=== PATIENT | female | born 1975 | race African-American/Black ===

== ENCOUNTER 2018-06-15 12:50 | Observation (INO) | payer MEDICARE ==
[2018-06-15] MEDS ORDERED: methylPREDNISolone NA SUCC 125 MG/2 ML VIAL IVPB ONE (13:03)
[2018-06-15] MEDS ORDERED: EPINEPHrine 1:1,000 1 MG/1 ML - 30ML VIAL (INJECTION) SQ ONE (13:03)
[2018-06-15] MEDS ORDERED: methylPREDNISolone NA SUCC 125 MG/2 ML VIAL ONE (13:04)
[2018-06-15] MEDS ORDERED: ALBUTEROL SO4 2.5/IPRATROPIUM 0.5 INH SOL 3 ML VIAL.NEB. NEB ONE (13:04)
[2018-06-15] MEDS ORDERED: SODIUM CHLORIDE 1,000 ML IV STA ×2 (13:04→17:59)
[2018-06-15] MEDS ORDERED: RACEPINEPHRINE IH SOL 2.25% 11.25 MG/0.5 ML VIAL IH ONE (13:04)
--- NOTE | 2018-06-15 13:05 | PDOC ---
History of Present Illness - General Chief Complaint: Allergic Reaction Stated Complaint: ALLEGRIC REASON Time Seen by Provider: 06/15/18 12:57 History Source: Patient Exam Limitations: Clinical Condition - History of Present Illness Initial Comments: 43 yo F presents with allergic reaction. She states she was drinking a guava drink just [employer]. She felt her lips and cheeks swell, took benadryl prior to arrival. Denies difficulty breathing or speaking, however, she is noted to have a wheezing sound on inspiration. Denies difficulty swallowing. Past History - Past Medical History Allergies/Adverse Reactions: Allergies Allergy/AdvReac Type Severity Reaction Status Date / Time No Known Allergies Allergy Verified 06/15/18 13:00 Home Medications: Ambulatory Orders NK [No Known Home Medication] 06/15/18 COPD: No - Suicide/Smoking/Psychosocial Hx Smoking History: Never smoked Have you smoked in the past 12 months: No Information on smoking cessation initiated: No Hx Alcohol Use: No Drug/Substance Use Hx: No Review of Systems - Review of Systems Able to Perform ROS?: Yes Comments:: GENERAL/CONSTITUTIONAL: No fever or chills. No weakness. HEAD, EYES, EARS, NOSE AND THROAT: No change in vision. No ear pain or discharge. No sore throat. +Facial swelling. CARDIOVASCULAR: No chest pain or shortness of breath. RESPIRATORY: No cough, wheezing, or hemoptysis. GASTROINTESTINAL: No nausea, vomiting, diarrhea or constipation. GENITOURINARY: No dysuria, frequency, or change in urination. MUSCULOSKELETAL: No joint or muscle swelling or pain. No neck or back pain. SKIN: No rash. NEUROLOGIC: No headache, vertigo, loss of consciousness, or change in strength/ sensation. ENDOCRINE: No increased thirst. No abnormal weight change. HEMATOLOGIC/LYMPHATIC: No anemia, easy bleeding, or history of blood clots. ALLERGIC/IMMUNOLOGIC: No hives or skin allergy. *Physical Exam - Vital Signs Last Vital Signs Temp Pulse Resp BP Pulse Ox 98.7 F 96 H 16 151/74 100 06/15/18 12:50 06/15/18 12:50 06/15/18 12:50 06/15/18 12:50 06/15/18 12:50 - Physical Exam Comments: GENERAL: Awake, alert, and fully oriented, in no acute distress HEAD: No signs of trauma EYES: PERRLA, EOMI, sclera anicteric, conjunctiva clear ENT: Auricles normal inspection, hearing grossly normal, nares patent, oropharynx clear without exudates. Moist mucosa. Uvula midline, but appears enlarged. NECK: Normal ROM, supple, no lymphadenopathy, JVD, or masses LUNGS: Breath sounds equal, clear to auscultation bilaterally. No wheezes, and no crackles. Good air entry B/L. Noted to have wheezing sounds upon inspiration , but not with exhalation. Able to speak. HEART: Regular rate and rhythm, normal S1 and S2, no murmurs, rubs or gallops ABDOMEN: Soft, nontender, normoactive bowel sounds. No guarding, no rebound. No masses EXTREMITIES: Normal range of motion, no edema. No clubbing or cyanosis. No cords, erythema, or tenderness NEUROLOGICAL: Cranial nerves II through XII grossly intact. Normal speech, normal gait. Motor and sensation intact SKIN: Warm, Dry, normal turgor, no rashes or lesions noted. Moderate Sedation - Procedure Monitoring Vital Signs: Procedure Monitoring Vital Signs Temperature 98.7 F 06/15/18 12:50 Pulse Rate 96 H 06/15/18 12:50 Respiratory Rate 16 06/15/18 12:50 Blood Pressure 151/74 06/15/18 12:50 O2 Sat by Pulse Oximetry (%) 100 06/15/18 12:50 Medical Decision Making - Medical Decision Making 06/15/18 13:09 Pt with inspiratory wheezing, but not expiratory. She states she can speak, but is speaking in a whisper. Based on these findings, will give epinephrine, as I am concerned for the apparent uvular swelling. Will cont to monitor. 06/15/18 13:59 Resting comfortably, airway intact. Will cont to monitor. 06/15/18 17:11 Pt still c/o throat symptoms. She is able to swallow and phonate, but her voice is hoarse. Will place on obs. *DC/Admit/Observation/Transfer Diagnosis at time of Disposition: Allergic reaction Qualifiers: Encounter type: initial encounter Qualified Code(s): T78.40XA - Allergy, unspecified, initial encounter - Discharge Dispostion Condition at time of disposition: Guarded Decision to Admit order: Yes - Referrals - Patient Instructions - Post Discharge Activity
[2018-06-15] MEDS ORDERED: EPINEPHrine/PF 1 MG/1 ML (1:1,000) AMPULE ONE (13:08)
[2018-06-15] MEDS ORDERED: RACEPINEPHRINE IH SOL 2.25% 11.25 MG/0.5 ML VIAL NEB ONE (13:09)
[2018-06-15 14:39] VITALS: TEMP 98.7; BMI 37.5
[2018-06-15 18:07] LABS: BASO % 0.2 % (0-2.0); HEMATOCRIT 34.5 % (32.4-45.2); HEMOGLOBIN 11.7 GM/dL (10.7-15.3); LYMPH % 6.2 % (8-40); MCH 28.5 pg (25.7-33.7); MEAN CELL VOLUME 83.8 fl (80-96); MEAN PLT VOLUME 9.1 fl (7.5-11.1); MONO % 1.3 % (3.8-10.2); NEUT % 92.3 % (42.8-82.8); PLATELET COUNT 349 K/MM3 (134-434); RBC 4.11 M/mm3 (3.60-5.2); RDW 16.2 % (11.6-15.6); WHITE BLOOD COUNT 10.2 K/mm3 (4.0-10.0)
[2018-06-15 18:38] LABS: ALBUMIN 3.6 g/dl (3.4-5.0); ALK PHOS 71 U/L (45-117); ANION GAP 9 MMOL/L (8-16); BILIRUBIN,TOTAL 0.4 mg/dL (0.2-1); BLOOD UREA NITROGEN 13 mg/dL (7-18); CHLORIDE 108 mmol/L (98-107); CO2 25 mmol/L (21-32); CREATININE 1.1 mg/dL (0.55-1.3); GLUCOSE,RANDOM 134 mg/dL (74-106); POTASSIUM 3.8 mmol/L (3.5-5.1); SGOT/AST 19 U/L (15-37); SGPT/ALT 34 U/L (13-61); SODIUM 142 mmol/L (136-145); TOT PROT 8.3 g/dl (6.4-8.2)
[2018-06-15 19:52] LABS: PLATELET ESTIMATE ADEQUATE
--- NOTE | 2018-06-15 20:08 | HP ---
Admitting History and Physical - Primary Care Physician PCP: Soniya Garces - Admission History of Present Illness: 43 yo F presents with allergic reaction. She states she was drinking a guava drink just [employer]. She felt her lips and cheeks swell, took benadryl prior to arrival. Denies difficulty breathing or speaking, however, she is noted to have a wheezing sound on inspiration. Denies difficulty swallowing. - Smoking History Smoking history: Never smoked Have you smoked in the past 12 months: No - Alcohol/Substance Use Hx Alcohol Use: No Home Medications - Allergies Allergies/Adverse Reactions: Allergies Allergy/AdvReac Type Severity Reaction Status Date / Time guava Allergy Severe Difficulty Verified 06/15/18 23:50 Breathing - Home Medications Home Medications: Ambulatory Orders NK [No Known Home Medication] 06/15/18 Physical Examination Vital Signs: Vital Signs Temperature 98.7 F 06/15/18 12:50 Pulse Rate 107 H 06/15/18 15:25 Respiratory Rate 30 H 06/15/18 15:25 Blood Pressure 147/72 06/15/18 15:25 O2 Sat by Pulse Oximetry (%) 100 06/15/18 18:48 Constitutional: Yes: No Distress HENT: Yes: Atraumatic, Other (throat is wide open enlarge tonsils) Neck: Yes: Supple Cardiovascular: Yes: Regular Rate and Rhythm Respiratory: Yes: CTA Bilaterally Gastrointestinal: Yes: Normal Bowel Sounds Extremities: Yes: WNL Edema: No Peripheral Pulses WNL: Yes Neurological: Yes: Alert, Oriented Labs: CBC, BMP 06/15/18 17:55 06/15/18 17:55 Problem List - Problems (1) Allergic reaction Assessment/Plan: iv steroids benadryl voice back to normal clinically much improved Code(s): T78.40XA - ALLERGY, UNSPECIFIED, INITIAL ENCOUNTER Qualifiers: Encounter type: initial encounter Qualified Code(s): T78.40XA - Allergy, unspecified, initial encounter Assessment/Plan Laboratory Tests 06/15/18 06/15/18 06/15/18 17:55 17:55 19:15 WBC 10.2 H RBC 4.11 Hgb 11.7 Hct 34.5 MCV 83.8 MCH 28.5 MCHC 34.0 RDW 16.2 H Plt Count 349 MPV 9.1 Absolute Neuts (auto) 9.4 H Total Counted 100 Neutrophils % 92.3 H Neutrophils % (Manual) 91.0 H Band Neutrophils % 1.0 Lymphocytes % 6.2 L Lymphocytes % (Manual) 7.0 L Monocytes % 1.3 L Monocytes % (Manual) 1 L Eosinophils % 0.0 Basophils % 0.2 Nucleated RBC % 0 Differential Comment Man diff performed Platelet Estimate Adequate Platelet Comment Sodium 142 Potassium 3.8 Chloride 108 H Carbon Dioxide 25 Anion Gap 9 BUN 13 Creatinine 1.1 Creat Clearance w eGFR 53.96 Random Glucose 134 H Calcium 9.0 Total Bilirubin 0.4 AST 19 ALT 34 Alkaline Phosphatase 71 Total Protein 8.3 H Albumin 3.6 Serum , Qual Negative
[2018-06-15] MEDS ORDERED: diphenhydrAMINE HCL 25 MG CAPSULE (FP) PO PRN (20:12)
--- NOTE | 2018-06-15 20:27 | PDOC ---
*Physical Exam - Vital Signs Last Vital Signs Temp Pulse Resp BP Pulse Ox 98.7 F 107 H 30 H 147/72 100 06/15/18 12:50 06/15/18 15:25 06/15/18 15:25 06/15/18 15:25 06/15/18 18:48 ED Treatment Course - LABORATORY CBC & Chemistry Diagram: 06/15/18 17:55 06/15/18 17:55 - Medications Given in the ED: ED Medications Discontinued Medications Generic Name Dose Route Start Last Admin Trade Name Purvi PRN Reason Stop Dose Admin Diphenhydramine HCl 25 mg 06/15/18 13:03 06/15/18 13:21 Benadryl Injection - IVPUSH 06/15/18 13:04 Not Given ONCE ONE Epinephrine 300 mcg 06/15/18 13:03 06/15/18 13:21 Epinephrine 1:1,000 - SQ 06/15/18 13:04 300 mcg ONCE ONE Administration Epinephrine 1 vial 06/15/18 13:04 06/15/18 13:21 S-2 IH 06/15/18 13:05 1 vial ONCE ONE Administration Sodium Chloride 1,000 mls @ 1,000 mls/hr 06/15/18 13:04 06/15/18 13:21 Normal Saline - IV 06/15/18 14:03 1,000 mls/hr ASDIR STA Administration Sodium Chloride 1,000 mls @ 1,000 mls/hr 06/15/18 17:59 06/15/18 18:30 Normal Saline - IV 06/15/18 18:58 1,000 mls/hr ASDIR STA Administration Methylprednisolone Sodium Succinate 125 mg 06/15/18 13:03 06/15/18 13:21 Solu-Medrol - IVPB 06/15/18 13:04 125 mg ONCE ONE Administration Medical Decision Making - Medical Decision Making 06/15/18 20:25 Patient signed out to me pending soft tissue neck results Findings consistent with possible swelling at the level of the palatine tonsils There is no evidence of acute airway compromise On reevaluation at the bedside patient is in no acute distress complaining only of a dry mouth, Call placed to admitting attending to relay results *DC/Admit/Observation/Transfer Diagnosis at time of Disposition: Allergic reaction Qualifiers: Encounter type: initial encounter Qualified Code(s): T78.40XA - Allergy, unspecified, initial encounter - Discharge Dispostion Condition at time of disposition: Guarded - Referrals - Patient Instructions - Post Discharge Activity
[2018-06-15] MEDS ORDERED: methylPREDNISolone NA SUCC 40 MG/1 ML VIAL ONE (20:34)
[2018-06-15] MEDS: methylPREDNISolone NA SUCC 40 MG/1 ML VIAL IVPUSH SCH (20:40)
[2018-06-16] MEDS ORDERED: methylPREDNISolone NA SUCC 40 MG/1 ML VIAL ONE ×3 (01:29→12:45)
[2018-06-16] MEDS: methylPREDNISolone NA SUCC 40 MG/1 ML VIAL IVPUSH SCH ×2 (03:25→09:20)
[2018-06-16] MEDS ORDERED: methylPREDNISolone NA SUCC 125 MG/2 ML VIAL ONE (09:12)
[2018-06-16] MEDS ORDERED: diphenhydrAMINE HCL 25 MG CAPSULE (FP) PO ONE (09:36)
--- NOTE | 2018-06-16 11:52 | EKG ---
Test Reason : Blood Pressure : / mmHG Vent. Rate : 111 BPM Atrial Rate : 111 BPM P-R Int : 200 ms QRS Dur : 090 ms QT Int : 320 ms P-R-T Axes : 066 060 056 degrees QTc Int : 435 ms SINUS TACHYCARDIA OTHERWISE NORMAL ECG NO PREVIOUS ECGS AVAILABLE Confirmed by MD MAKEDA, JOHNNA ([id number]) on 06/16/2018 11:52:03 AM Referred By: Confirmed By:JOHNNA ASHFORD MD
[2018-06-16] MEDS ORDERED: diphenhydrAMINE HCL 25 MG CAPSULE (FP) PO SCH ×2 (12:15→12:22)
--- NOTE | 2018-06-16 12:16 | DS ---
Physical Examination Vital Signs: Vital Signs Temperature 98.7 F 06/15/18 12:50 Pulse Rate 76 06/16/18 07:25 Respiratory Rate 22 H 06/16/18 07:25 Blood Pressure 109/90 06/16/18 07:25 O2 Sat by Pulse Oximetry (%) 95 06/16/18 07:28 Labs: CBC, BMP 06/15/18 17:55 06/15/18 17:55 Discharge Summary Reason For Visit: ALLEGRIC REACTION Current Active Problems Allergic reaction (Acute) Condition: Guarded - Instructions Diet, Activity, Other Instructions: benadryly 25 mg po q6h for another 24 hours then as needed go to allergy immunology for testing - Home Medications Comprehensive Discharge Medication List: Ambulatory Orders NK [No Known Home Medication] 06/15/18 dc
[2018-06-16] MEDS ORDERED: methylPREDNISolone NA SUCC 40 MG/1 ML VIAL IVPUSH ONE (12:30)
[2018-06-16 14:24] VITALS: BP 130/59; PULSE 74
== END 2018-06-16 14:25 | disposition home or self-care (01) ==
LOC: JER 12:50 → JERBED 17:16
PROVIDERS: ADMIT Internal Medicine; ATTEND Internal Medicine
PROC: 3E0333Z Introduction of Anti-inflammatory into Peripheral Vein, Percutaneous Approach (ICD-10-PCS; principal; 2018-06-15)
PROC: 3E0337Z Introduction of Electrolytic and Water Balance Substance into Peripheral Vein, Percutaneous Approach (ICD-10-PCS; 2018-06-15)
PROC: 3E013GC Introduction of Other Therapeutic Substance into Subcutaneous Tissue, Percutaneous Approach (ICD-10-PCS; 2018-06-15)
PROC: 3E0F7GC Introduction of Other Therapeutic Substance into Respiratory Tract, Via Natural or Artificial Opening (ICD-10-PCS; 2018-06-15)
DX: T78.40XA Allergy, unspecified, initial encounter (principal); X58.XXXA Exposure to other specified factors, initial encounter
CPT/HCPCS: 36415; 70360-TC-FY; 80053; 82550; 82553; 84484; 84703; 85025; 93005; 93010; 94640; 96361; 96372; 96374; 96376; 99285-25; G0378; J7030